=== PATIENT | female | born 1950 | race Caucasian/White ===

== ENCOUNTER → 2017-07-13 | Outpatient (CLI) | payer MEDICARE, OTHER ==
[~2017-07-13] MED LIST: CALC500T42 PO; CRESTOR; IRO150 PO; LOR7.5/325 PO; MOM PO; MULT1CAP41 PO; OSTEOBIFLEX; OXY10 PO; PANT40TA65 PO; PER PO; RIV10 PO; SIMV-44 PO; WAR5 PO
--- NOTE | 2017-07-13 14:21 | RADIOLOGY IMAGING REPORT ---
FACILITY: [facility] PATIENT NAME: TOMMY TIMMONS : [id number] MR: [id number] V: [id number] EXAM DATE: ORDERING PHYSICIAN: KRAIG LIRA TECHNOLOGIST: Mariya Todd PROCEDURE:BILATERAL DIGITAL SCREENING MAMMOGRAM WITH CAD ASSISTED INTERPRETATION & 3D TOMOSYNTHESIS COMPARISON:Prior mammogram 07/11/16, 07/06/15 INDICATIONS:SCREENING/PERSONAL HISTORY OF PREVIOUS BENIGN LEFT BREAST SURGICAL BIOPSY. TISSUE DENSITY: Scattered fibroglandular densities. FINDINGS: Views obtained bilateral 2D full field CC & MLO, and corresponding tomography. There is no mammographic finding suspicious for malignancy, and no significant change compared to prior mammograms. DIAGNOSTIC CATEGORY 1--NEGATIVE. RECOMMENDATIONS: ROUTINE MAMMOGRAM AND CLINICAL EVALUATION. IMPRESSION: BIRADS 1: Negative Annual bilateral screening mammogram. Dictated by: Veronica Agarwal M.D. on 07/13/2017 at 12:16 Transcribed by: DONNELL on 07/13/2017 at 13:53 Approved by: Veronica Agarwal M.D. on 07/13/2017 at 14:20 [facility]
== END ==
LOC: MAMO 02:13
PROVIDERS: ATTEND Nurse Practitioner Family
DX: Z12.31 Encounter for screening mammogram for malignant neoplasm of breast (principal)
CPT/HCPCS: 77063; 77067

== ENCOUNTER → 2017-09-10 | Outpatient (CLI) | payer MEDICARE, OTHER ==
--- NOTE | 2017-09-10 14:31 | RADIOLOGY IMAGING REPORT ---
FACILITY: [facility] PATIENT NAME: Chelo Crowder : 1950 MR: [id number] V: [id number] EXAM DATE: ORDERING PHYSICIAN: KRAIG LIRA TECHNOLOGIST: Location: [facility] Patient: Chelo Crowder : 1950 Visit/Account:[id number] Date of Sevice: 09/10/2017 DEXA Scan HISTORY: Osteopenia, decreased vitamin D. COMPARISON: 07/25/2007. LUMBAR SPINE: The bone mineral density (BMD) measured from L1-L4 correlates with a Z-score of +1.2 and a T-score of +0.7 which is normal as defined by the World Health Organization. The corresponding risk of fractur e in the lumbar spine is not increased compared with a young adult reference population. This value has decreased by 6 % since the prior study. More than 5% change is considered significant. HIP: Bone mineral density (BMD) measured in the left total hip region correlates with a Z-score of -0.9 an d a T-score of -1.4 which is compatible with osteopenia as defined by the World Health Organization. The corresponding risk of fracture in the hip is increased 2-3 times compared with a young adult ref erence population. This value in the total hip has decreased by 18.2 % since the prior study. More t driver 5% change is considered significant. Bone mineral density (BMD) measured in the left Femoral Neck region measures 0.842 g/cm2. IMPRESSION: 1. Lumbar spine: Normal. There has been significant decrease in the bone mineral density since the previous exam. 2. Left Total Hip: Compatible with osteopenia. There has been significant decrease in the bone min eral density since the previous exam. 3. Left Femoral Neck: Bone Mineral Density is 0.842 g/cm2 The next DEXA scan of this patient should include the following sites: L1-L4 and left hip. FRAX? WHO Fracture Risk Assessment Tool link: <http://www.shef.ac.uk/FRAX/tool.jsp?locationValue=9> PLEASE NOTE: 1) The World Health Organization defines low BMD as follows: T-score Normal > -1 Osteopenia < -1 and > -2.5 Osteoporosis < -2.5 without fractures Established osteoporosis < -2.5 with fractures 2) In general, you may wish to consider: Diagnosis Treatment Follow-up DEXA Normal BMD Prevention 2-3 years Osteopenia Prevention/therapy 1-2 years Osteoporosis Therapy Yearly 3) Fracture risk estimated from the T-score is more accurate for vertebral fractures (often spontane ous) than for hip fractures. Report Dictated By: Lennie Hernández MD at 09/10/2017 2:26 PM Report E-Signed By: Lennie Hernández MD at 09/10/2017 2:28 PM WSN:[email or web address]
== END ==
LOC: RAD 11:52
PROVIDERS: ATTEND Nurse Practitioner Family
DX: Z13.820 Encounter for screening for osteoporosis (principal); M85.88 Other specified disorders of bone density and structure, other site; E55.9 Vitamin D deficiency, unspecified; Z78.0 Asymptomatic menopausal state
CPT/HCPCS: 77080

== ENCOUNTER 2017-11-21 01:10 | Day surgery (SDC) | payer MEDICARE, OTHER ==
[~2017-11-21] VITALS: Ht 162.6 cm; Wt 103.4 kg
[~2017-11-21 01:10] MED LIST changes: +ASPI-1471 PO; +CALC500T6 PO; +CHOL10005 PO
[2017-11-21 06:29] VITALS: BP 138/81
[2017-11-21] MEDS ORDERED: LIDOCAINE/SOD BICARB 8.4% SYR ID ONE (06:30)
[2017-11-21] MEDS ORDERED: NORMOSOL R SOLN(*) 1000 ML BAG 1,000 ML IV PRN (06:30)
[2017-11-21 07:41] VITALS: BP 112/63
--- NOTE | 2017-11-21 07:45 | Short(Outpt) Discharge Summary ---
Discharge Summary Reason for Hosp/Final Diag: (1) Colon cancer screening Status: Chronic Hospital Course & Plan: Colonoscopy completed without any problems: normal Departure Discharge to: Home, Self Care Discharge Instructions Home Meds Reported Medications Cholecalciferol (Vitamin D3) (VITAMIN D3) 1,000 Unit Tablet, 5000 UNIT PO QDAY, TAB 11/16/17 Calcium Carbonate (CALCIUM) 500 Mg Tablet, 1500 MG PO QDAY 11/16/17 Aspirin (ASPIR 81) 81 Mg Tablet.dr, 1 TAB PO QDAY, TAB 09/28/17 Simvastatin (Zocor) 40 Mg Tablet, 1 TAB PO QHS, 0 Refills 03/11/11 Diet: Regular Activity: As Tolerated Special Instructions: Your colonoscopy was completed without any problems and your prep was excellent (Good Job!!). Your colonoscopy was normal. I recommend that you have another colonoscopy in 10 years. Copies to: KRAIG LIRA JOHN A MD Nov 21, 2017 07:45
[2017-11-21 07:49] VITALS: BP 117/48
[2017-11-21 08:00] VITALS: BP 118/56
[2017-11-21 08:12] VITALS: BP 128/73
[2017-11-21 08:14] VITALS: BP 132/65
== END 2017-11-21 08:44 | disposition home or self-care (01) ==
LOC: OR 01:10
PROVIDERS: ATTEND Surgery
DX: Z12.11 Encounter for screening for malignant neoplasm of colon (principal); K64.4 Residual hemorrhoidal skin tags
CPT/HCPCS: 00812; G0121

== ENCOUNTER → 2018-08-12 | Outpatient (CLI) | payer MEDICARE, OTHER ==
--- NOTE | 2018-08-13 16:43 | RADIOLOGY IMAGING REPORT ---
FACILITY: [facility] [place] PATIENT NAME: TOMMY TIMMONS : [id number] MR: [id number] V: [id number] EXAM DATE: ORDERING PHYSICIAN: KRAIG LIRA TECHNOLOGIST: Mariya Todd PROCEDURE:BILATERAL DIGITAL SCREENING MAMMOGRAM WITH CAD ASSISTED INTERPRETATION & 3D TOMOSYNTHESIS COMPARISON:Prior mammograms 07/13/17, 07/11/16, 07/06/15, 06/12/14, 07/24/12. INDICATIONS:SCREENING FINDINGS: There are scattered areas of fibroglandular density throughout the breasts. The parenchymal pattern has remained stable allowing for difference in mammographic technique & patient positioning. DIAGNOSTIC CATEGORY 1--NEGATIVE. RECOMMENDATIONS: ROUTINE MAMMOGRAM AND CLINICAL EVALUATION. IMPRESSION: BIRADS 1: Negative. No significant abnormality is seen. Dictated by: Glenna Callahan M.D. on 08/12/2018 at 17:36 Transcribed by: DONNELL on 08/13/2018 at 10:31 Approved by: Glenna Callahan M.D. on 08/13/2018 at 16:42 [facility]
== END ==
LOC: MAMO 01:05
PROVIDERS: ATTEND Nurse Practitioner Family
DX: Z12.31 Encounter for screening mammogram for malignant neoplasm of breast (principal)
CPT/HCPCS: 77063; 77067